=== PATIENT | female | born 1970 | race Caucasian/White ===

== ENCOUNTER 2016-12-22 17:05 | Emergency (ER) | payer BC ==
[2016-12-22 17:16] VITALS: BP 127/78
--- NOTE | 2016-12-22 17:52 | UC ---
Shoulder Pain HPI - HPI Summary HPI Summary: Patient presents with right shoulder pain after stretching out the arm when her dog pulled her. She fell onto the porch, but the pain was d/t the pulling. Denies head injury or LOC. She is unable to abduct the arm actively, but passively is with minimal pain. She is unable to twist at the shoulder and most of the pain is located anteriorly. She denies medication use or other health problems. She has not taken anything for the pain. 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 - History of Current Complaint Chief Complaint: UCUpperExtremity Stated Complaint: RT SHOULDER PAIN Time Seen by Provider: 12/22/16 17:33 Hx Obtained From: Patient Hx Last Menstrual Period: 12/01/16 ?: No Onset/Duration: Sudden Onset Timing: Constant Severity Initially: Moderate Severity Currently: Moderate Location Of Pain: Is Discrete @ - right shoulder Pain Intensity: 5 Pain Scale Used: 0-10 Numeric Character: Sharp, Aching, Burning Aggravating Factor(s): Movement, Lifting, Extension, Internal Rotation, External Rotation, Abduction Alleviating Factor(s): Rest Associated Signs And Symptoms: Positive: Negative Related History: Similar Episode/Dx As, Dominant Hand Right - Risk Factors Non-Orthopedic Risk Factor: Negative DVT Risk Factors: Negative Septic Arthritis Risk Factor: Negative - Allergies/Home Medications Allergies/Adverse Reactions: Allergies Allergy/AdvReac Type Severity Reaction Status Date / Time Penicillins Allergy Intermediate Hives Verified 12/22/16 17:16 Home Medications: Home Medications NK [No Home Medications Reported] 12/22/16 [History Confirmed 12/22/16] PMH/Surg Hx/FS Hx/Imm Hx Previously Healthy: Yes - Surgical History Surgical History: None - Family History Known Family History: Positive: Unknown - Social History Occupation: Employed Full-time Alcohol Use: Occasionally Substance Use Type: None Smoking Status (MU): Never Smoked Tobacco Review of Systems Constitutional: Negative ENT: Negative Respiratory: Negative Cardiovascular: Negative Genitourinary: Negative Musculoskeletal: Arthralgia, Myalgia - right shoulder pain with abduction Neurological: Negative Psychological: Negative All Other Systems Reviewed And Are Negative: Yes Physical Exam Triage Information Reviewed: Yes Appearance: Well-Appearing, No Pain Distress, Well-Nourished Vital Signs: Initial Vital Signs Temp 98.8 F 12/22/16 17:09 Pulse 77 06/07/17 17:09 Resp 16 12/22/16 17:09 BP 127/78 12/22/16 17:09 Pulse Ox 98 12/22/16 17:09 Vital Signs Reviewed: Yes Eye Exam: Normal Eyes: Positive: Conjunctiva Clear Neck exam: Normal Neck: Positive: Supple, No Lymphadenopathy Respiratory Exam: Normal Respiratory: Positive: Chest non-tender Cardiovascular Exam: Normal Cardiovascular: Positive: RRR Musculoskeletal: Positive: ROM Limited @ - abduction of the right shoulder Neurological Exam: Normal Neurological: Positive: Alert, Muscle Tone Normal Psychological Exam: Normal Psychological: Positive: Normal Response To Family, Age Appropriate Behavior Skin Exam: Normal Shoulder Course/Dx - Course Course Of Treatment: Patient presents with right shoulder pain after the right shoulder was pulled. She is unable to abduct the arm, passive abduction is without pain, adduction with pain. Pain is felt anteriorly over the right shoulder. No acute findings on xray. Patient is referred to Dr. ledesma for further workup of rotator cuff injury. - Differential Dx/Diagnosis Differential Diagnosis/HQI/PQRI: Sprain, Strain, Tendonitis Provider Diagnoses: Muscle Strain Discharge - Discharge Plan Condition: Stable Disposition: HOME Patient Education Materials: Rotator Cuff Injury (ED) Referrals: Jeffery Mix MD [Medical Doctor] - No Primary Care Phys,NOPCP [Primary Care Provider] - Additional Instructions: Ibuprofen 600mg three times daily with meals for pain. Follow up with orthopedic physician in 5-7 days.
--- NOTE | 2016-12-22 18:27 | RAD ---
INDICATION: Right shoulder injury. TECHNIQUE: 4 views of the right shoulder were obtained. FINDINGS: The bones are in normal alignment. No fracture is seen. Joint spaces appear maintained. IMPRESSION: NO EVIDENCE OF FRACTURE.
== END 2016-12-22 18:54 | disposition home or self-care (01) ==
LOC: UCCORT 17:05
DX: S46.911A Strain of unspecified muscle, fascia and tendon at shoulder and upper arm level, right arm, initial encounter (principal); X50.9XXA Other and unspecified overexertion or strenuous movements or postures, initial encounter; Y93.89 Activity, other specified; Y92.9 Unspecified place or not applicable; Y99.9 Unspecified external cause status
CPT/HCPCS: 99212; G0463